=== PATIENT | male | born 1950 | race Two or more races ===

== ENCOUNTER 2018-06-07 12:50 | Emergency (ER) | payer OTHER ==
[~2018-06-07] VITALS: Ht 180.3 cm; Wt 85.7 kg
[~2018-06-07 12:50] MED LIST: AVAPRO300 MG; LEVOFLOXACIN500 MG; NAPROXEN500 MG
[2018-06-07] MEDS ORDERED: ATORVASTATIN CA40 MG (13:28)
[2018-06-07] MEDS ORDERED: TOPROL XL25 M1 (13:28)
[2018-06-07] MEDS ORDERED: BRILINTA90 MG (13:28)
[2018-06-07] MEDS ORDERED: IRBESARTAN150 MG (13:28)
[2018-06-07] MEDS ORDERED: METFORMIN HCL500 M1 (13:29)
[2018-06-07] MEDS ORDERED: FLUOXETINE HCL20 MG (13:29)
[2018-06-07] MEDS ORDERED: ASPIR 8181 MG (13:29)
[2018-06-07] MEDS ORDERED: PROMETHAZINE W473 ML PO (17:04)
[2018-06-07] MEDS ORDERED: TESSALON PERLE100 M1 PO (17:04)
[2018-06-07] MEDS ORDERED: OSEL75CA PO (17:04)
== END 2018-06-07 17:37 | disposition home or self-care (01) ==
LOC: ER 12:50
DX: B34.9 Viral infection, unspecified (principal)